=== PATIENT | male | born 1970 | race African-American/Black ===

== ENCOUNTER → 2017-06-16 | Outpatient (CLI) | payer OTHER ==
[~2017-06-16] MED LIST: COZAAR 50MG50 MG/TAB PO; HCTZ 25MG TAB25 MG PO; LAMICTAL150 MG PO; LATUDA80 MG PO; PRAVACHOL 40MG40 MG PO; PRILOTC; STRATTERA100 MG PO
== END ==
LOC: COL.RAD 13:49
DX: G31.84 Mild cognitive impairment of uncertain or unknown etiology (principal)